=== PATIENT | male | born 1940 | race Two or more races ===

== ENCOUNTER 2023-11-19 17:57 | Emergency (ER) | payer OTHER ==
[~2023-11-19] VITALS: Ht 165.1 cm; Wt 70.3 kg
[2023-11-19] MEDS ORDERED: SYNTHROID100 MCG PO (18:26)
[2023-11-19] MEDS ORDERED: SILDENAFIL CIT100 MG PO (18:27)
[2023-11-19] MEDS ORDERED: JARDIANCE10 MG PO (18:27)
[2023-11-19] MEDS ORDERED: CARVEDILOL6.25 M1 PO (18:27)
[2023-11-19] MEDS ORDERED: XANAX0.25 MG PO (18:27)
[2023-11-19] MEDS ORDERED: GABAPENTIN300 M2 PO (18:27)
[2023-11-19 20:07] LABS: HEMATOCRIT 44.3 % (39.0-48.0); HEMOGLOBIN 14.9 g/dL (13-16.00); MEAN CELL VOLUME 95.9 fL (80.0-100.00); MEAN CORPUSCULAR HEMOGLOBIN 32.2 pg (27.00-32.0); MEAN CORPUSCULAR HGB CONC 33.6 g/dl (32.0-36.0); PLATELET COUNT 190 K/uL (150-450); RED BLOOD COUNT 4.62 M/uL (4.00-6.00); RED CELL DISTRIBUTION WIDTH 15.1 % (11.5-14.5)
[2023-11-19 20:33] LABS: ALBUMIN 3.4 gm/dL (3.4-5.0); BILIRUBIN TOTAL 2.95 mg/dL (0.3-1.2); CALCIUM 9.6 mg/dL (8.5-10.1); CREATININE SERUM 1.61 mg/dL (0.70-1.30); GFR 41.39; GLOBULINA 3.8 G/DL (2.4-3.5); POTASSIUM 4.43 mEq/L (3.5-5.1); TOTAL PROTEIN 7.2 gm/dL (6.4-8.2)
[2023-11-19 21:01] LABS: PH,URINE 5.5 (5.0-8.0); URINE APPEARANCE Clear; URINE BILIRRUBIN Moderate (NEGATIVE); URINE BLOOD Negative; URINE COLOR Dark Yellow; URINE LEUKOCYTE Trace; URINE NITRATE Positive; URINE PROTEIN 30 (NEGATIVE)
[2023-11-19 21:05] LABS: URINE BACTERIA 23.9 uL (0.0-1933); URINE EPITHELIAL CELLS 32.1 uL (0.0-38.8); URINE RBC 4.2 uL (0.0-20.8); URINE WBC 13.7 uL (0.0-23.2)
[2023-11-19 21:12] LABS: URINE GLUCOSE >=1000 MG/DL (NEGATIVE)
== END 2023-11-20 00:01 | disposition home or self-care (01) ==
LOC: ER 17:58
PROVIDERS: General Practice
DX: N39.0 Urinary tract infection, site not specified (principal); R10.2 Pelvic and perineal pain; K80.20 Calculus of gallbladder without cholecystitis without obstruction; N20.0 Calculus of kidney; K43.9 Ventral hernia without obstruction or gangrene; I10 Essential (primary) hypertension; Z20.822 Contact with and (suspected) exposure to COVID-19

== ENCOUNTER → 2024-05-24 09:56 | Outpatient (CLI) | payer OTHER ==
[~2024-05-24 09:56] MED LIST: CARVEDILOL6.25 M1 PO; GABAPENTIN300 M2 PO; JARDIANCE10 MG PO; SILDENAFIL CIT100 MG PO; SYNTHROID100 MCG PO; XANAX0.25 MG PO
== END | disposition home or self-care (01) ==
LOC: NUCLEAR 09:56
PROVIDERS: ATTEND Internal Medicine Cardiovascular Disease
DX: I42.0 Dilated cardiomyopathy (principal)

== ENCOUNTER 2024-11-04 13:50 | Inpatient (IN) | payer OTHER ==
[~2024-11-04] VITALS: Ht 165.1 cm; Wt 70.3 kg
[2024-11-04] MEDS ORDERED: LEVOTHYROXINE25 MCG PO (16:51)
--- NOTE | 2024-11-04 16:53 | NUR ---
SE RECIBE PACIENTE ALERTA Y CONCIENTE X 3. EL MISMO REFIERE VENIR PORQUE CARLSON DOCTOR CRYSTAL RAYMOND DESEA COMPROBAR CON UN NEUMOLOGO YANNICK PLACA DE PECHO REALIZADA. SE PROCEDE A JUDY S/V AL PACIENTE Y EL MISMO INDICA NON TENER NINGUN DOLOR Y SENTIRSE LAXMI. SE UBICA PACIENTE.
[2024-11-04 18:21] LABS: BASO % 0.6 % (0.1-1.2); EOS # 0.31 (0.04-0.54); EOS % 2.5 % (0.7-7.0); LYMPH # 1.26 (1.18-3.74); LYMPH % 10.1 % (19.3-53.1); MEAN PLATELET VOLUME 8.80 fl (9.4-12.4); MONO # 0.68 (0.24-0.82); MONO % 5.4 % (4.7-12.5); NEUT # 10.09 (1.56-6.13); NEUT % 80.8 % (34.0-71.1); RED CELL DISTRIBUTION WIDTH 13.2 % (11.6-14.4)
[2024-11-04 18:42] LABS: INR 1.05
[2024-11-04 18:51] LABS: ALT/SGPT 21.0 U/L (12-78); AST/SGOT 13.0 U/L (15-37); BILIRUBIN TOTAL 0.39 mg/dL (0.3-1.2); BUN CREA RATIO 16.0 (7.0-25.0); CREATININE SERUM 1.54 mg/dL (0.70-1.30); GFR 43.46; GLOBULINA 5.1 G/DL (2.4-3.5); GLUCOSE FASTING 98.0 mg/dL (65-100); OSMOLALITY SERUM 289.0 MOSM/KG (275-295)
[2024-11-04 18:58] LABS: COVID-19 AG NEGATIVE (NEGATIVE)
[2024-11-04] MEDS ORDERED: levoFLOXacin IN DEXTROSE 5 % 500MG/100ML PIGGYBAG IV ONE (21:15)
[2024-11-04] MEDS ORDERED: FAMOtidine 10 MG/ML (4ML VIAL) IV ONE (21:15)
[2024-11-04] MEDS ORDERED: GUAIFEN/DEXTROMETHORPHAN/PE 10 ML BLIST.PACK PO SCH (22:51)
[2024-11-04] MEDS ORDERED: 0.9 % SODIUM CHLORIDE 1,000 ML IV SCH (23:00)
[2024-11-04] MEDS ORDERED: INSULIN LISPRO 1,000 UNIT/10 ML UNITS SUBCUTANEO PRN (23:00)
[2024-11-04] MEDS ORDERED: SODIUM POLYSTYRENE SULFONATE 30G/8 TSP PO ONE (23:00)
[2024-11-04] MEDS ORDERED: ACETAMINOPHEN 500 MG GEL..CAP PO PRN (23:00)
[2024-11-04] MEDS ORDERED: DEXTROSE 50 % IN WATER 0.5 G/ML DISP.SYRIN IV PRN (23:00)
[2024-11-04] MEDS ORDERED: TEMAZEPAM 15 MG CAPSULE PO ONE (23:30)
[2024-11-05 00:31] LABS: ABG PH 7.391 (7.35-7.45); ABG PO2 69.0 mmHg (80-100); BICARBONATE 21.0 mmol/l (23-25)
[2024-11-05 00:32] LABS: o2 21 %
[2024-11-05] MEDS ORDERED: IPRATROPIUM BROMIDE 0.5 MG/2.5 ML AMPUL.NEB IH SCH (01:00)
[2024-11-05 03:21] VITALS: BP 130/85
[2024-11-05 04:54] LABS: BUN CREA RATIO 17.0 (7.0-25.0); CREATININE SERUM 1.44 mg/dL (0.70-1.30); GFR 46.97; GLUCOSE FASTING 94.0 mg/dL (65-100); OSMOLALITY SERUM 287.0 MOSM/KG (275-295)
[2024-11-05] MEDS ORDERED: LEVOTHYROXINE SODIUM 25 MCG TABLET PO SCH (06:00)
[2024-11-05 08:16] VITALS: BP 141/78; O2SAT 95
[2024-11-05] MEDS ORDERED: ENOXAPARIN SODIUM 40 MG/0.4 ML SYRINGE SUBCUTANEO SCH (09:00)
[2024-11-05] MEDS ORDERED: FAMOTIDINE/PF 20 MG in 0.9 % SODIUM CHLORIDE 8 ML IV PUSH SCH (09:00)
[2024-11-05] MEDS ORDERED: DEXTROSE 50 % IN WATER 0.5 G/ML VIAL IV PRN (14:15)
[2024-11-05] MEDS ORDERED: RINGERS SOLUTION,LACTATED 1,000 ML IV SCH (17:00)
[2024-11-05 17:59] VITALS: BP 148/72; O2SAT 100
[2024-11-05] MEDS ORDERED: QUETIAPINE FUMARATE 100 MG TABLET PO SCH (21:00)
[2024-11-06 00:45] VITALS: BP 135/64; O2SAT 93
[2024-11-06 06:15] LABS: BASO % 0.6 % (0.1-1.2); EOS # 0.35 (0.04-0.54); EOS % 3.0 % (0.7-7.0); LYMPH # 1.43 (1.18-3.74); LYMPH % 12.4 % (19.3-53.1); MEAN PLATELET VOLUME 8.60 fl (9.4-12.4); MONO # 0.71 (0.24-0.82); MONO % 6.1 % (4.7-12.5); NEUT # 8.94 (1.56-6.13); NEUT % 77.3 % (34.0-71.1); RED CELL DISTRIBUTION WIDTH 13.2 % (11.6-14.4)
[2024-11-06 06:39] LABS: ALT/SGPT 15.0 U/L (12-78); AST/SGOT 12.0 U/L (15-37); BILIRUBIN TOTAL 0.33 mg/dL (0.3-1.2); BUN CREA RATIO 14.0 (7.0-25.0); CREATININE SERUM 1.45 mg/dL (0.70-1.30); GFR 46.59; GLOBULINA 4.1 G/DL (2.4-3.5); GLUCOSE FASTING 88.0 mg/dL (65-100); OSMOLALITY SERUM 286.0 MOSM/KG (275-295)
[2024-11-06 10:16] VITALS: BP 145/63; O2SAT 94
[2024-11-06] MEDS ORDERED: AMINO ACIDS/PROTEIN HYDROLYS 30 ML BLIST.PACK PO SCH ×2 (11:00→13:00)
[2024-11-06 18:37] VITALS: BP 137/74; O2SAT 97
[2024-11-07 01:00] VITALS: BP 90/50
[2024-11-07 06:24] LABS: BASO % 0.5 % (0.1-1.2); EOS # 0.28 (0.04-0.54); EOS % 2.9 % (0.7-7.0); LYMPH # 0.96 (1.18-3.74); LYMPH % 10.0 % (19.3-53.1); MEAN PLATELET VOLUME 8.70 fl (9.4-12.4); MONO # 0.66 (0.24-0.82); MONO % 6.9 % (4.7-12.5); NEUT # 7.55 (1.56-6.13); NEUT % 79.1 % (34.0-71.1); RED CELL DISTRIBUTION WIDTH 13.3 % (11.6-14.4)
[2024-11-07 06:57] LABS: ALT/SGPT 12.0 U/L (12-78); AST/SGOT 12.0 U/L (15-37); BILIRUBIN TOTAL 0.34 mg/dL (0.3-1.2); BUN CREA RATIO 18.0 (7.0-25.0); CREATININE SERUM 1.27 mg/dL (0.70-1.30); GFR 54.29; GLOBULINA 3.5 G/DL (2.4-3.5); GLUCOSE FASTING 98.0 mg/dL (65-100); OSMOLALITY SERUM 287.0 MOSM/KG (275-295)
[2024-11-07] MEDS ORDERED: levoFLOXacin IN DEXTROSE 5 % 150 ML IV SCH (09:00)
[2024-11-07] MEDS ORDERED: LEVALBUTEROL HCL 1.25 MG/3 ML SOLUTION IH SCH (09:00)
[2024-11-07] MEDS ORDERED: SODIUM CHLORIDE FOR INHALATION 1 VIAL.NEB IH SCH (09:00)
[2024-11-07 09:17] VITALS: BP 132/53; O2SAT 94
[2024-11-07 18:08] VITALS: BP 143/80; O2SAT 96
[2024-11-07 18:10] VITALS: BP 143/80; O2SAT 96
[2024-11-08 01:28] VITALS: BP 125/68
[2024-11-08 08:00] VITALS: BP 155/68; O2SAT 95
[2024-11-08] MEDS ORDERED: LEVOFLOXACIN750 MG PO (14:27)
[2024-11-08] MEDS ORDERED: SYMBICORT 80/10.2 GM IH (14:28)
== END 2024-11-08 14:49 | disposition home or self-care (01) | DRG 194 ==
LOC: ER 13:50 → SEC-K 22:53 → MEDJ 22:53
PROVIDERS: General Practice; Preventive Medicine Public Health & General Preventive Medicine; ADMIT Internal Medicine; ATTEND Internal Medicine
PROC: BB24ZZZ Computerized Tomography (CT Scan) of Bilateral Lungs (ICD-10-PCS; principal; 2024-11-04)
PROC: 3E0F7GC Introduction of Other Therapeutic Substance into Respiratory Tract, Via Natural or Artificial Opening (ICD-10-PCS; 2024-11-05)
DX: J18.9 Pneumonia, unspecified organism (principal); N17.8 Other acute kidney failure; E87.5 Hyperkalemia; E11.9 Type 2 diabetes mellitus without complications; Z79.4 Long term (current) use of insulin; I10 Essential (primary) hypertension

== ENCOUNTER 2025-03-23 10:54 | Inpatient (IN) | payer OTHER ==
[~2025-03-23] VITALS: Ht 172.7 cm; Wt 61.2 kg
[~2025-03-23 10:54] MED LIST changes: +LEVOFLOXACIN750 MG PO; +LEVOTHYROXINE25 MCG PO; +SYMBICORT 80/10.2 GM IH
[2025-03-23] MEDS ORDERED: NITROGLYCERIN IN 5 % DEXTROSE 250 ML IV SCH (11:17)
[2025-03-23] MEDS ORDERED: 0.9 % SODIUM CHLORIDE 1,000 ML IV STA (11:19)
[2025-03-23] MEDS ORDERED: 0.9 % SODIUM CHLORIDE 1,000 ML IV SCH (11:30)
[2025-03-23] MEDS ORDERED: ASPIRIN 325 MG TABLET.EC PO SCH (11:30)
[2025-03-23] MEDS ORDERED: AMIODARONE HCL 50 MG/ML AMPUL IV ONE ×2 (11:32→12:03)
[2025-03-23 11:35] LABS: BASO % 0.6 % (0.1-1.2); EOS # 0.11 (0.04-0.54); EOS % 0.9 % (0.7-7.0); LYMPH # 1.52 (1.18-3.74); LYMPH % 12.2 % (19.3-53.1); MEAN PLATELET VOLUME 9.40 fl (9.4-12.4); MONO # 0.62 (0.24-0.82); MONO % 5.0 % (4.7-12.5); NEUT # 10.06 (1.56-6.13); NEUT % 81.1 % (34.0-71.1); RED CELL DISTRIBUTION WIDTH 14.1 % (11.6-14.4)
[2025-03-23 11:37] LABS: ERYTHROCYTE SEDIMENTATION RATE 13 mm/hr (0-20)
--- NOTE | 2025-03-23 11:40 | NUR ---
PACIENTE ALERTA Y ORIENTADO X 3, ACOMPANADO DE FAMILIAR. REFIEREN DOLOR DE PECHO DESDE LAS 7AM. SE MIDEN S/V Y SE REALIZA EKG. SE PRESENTA A TIERA BERLINGERY QUIEN ORDENA COLOCAR EN MONITOR CAN SATUROMETRO Y CANULA NASAL.
--- NOTE | 2025-03-23 11:44 | NUR ---
NO ES POSIBLE AL MOMENTO REALIZAR CONCILIACION DE MEDICAMENTOS CON PACIENTE Y FAMILIAR LOS DESCONOCE.
[2025-03-23 11:59] LABS: INR 0.94
[2025-03-23 12:06] LABS: ALT/SGPT 13.0 U/L (12-78); AST/SGOT 10.0 U/L (15-37); BILIRUBIN TOTAL 0.28 mg/dL (0.3-1.2); BUN CREA RATIO 18.0 (7.0-25.0); CHOL HDL RATIO 3.2 (0-5.0); CREATININE SERUM 2.39 mg/dL (0.70-1.30); GFR 26.11; GLOBULINA 3.5 G/DL (2.4-3.5); GLUCOSE FASTING 173.0 mg/dL (65-100); HDL 59.0 mg/dl (40-60); LDH 146.0 U/L (87-241); OSMOLALITY SERUM 300.0 MOSM/KG (275-295); PHOSPHOKINASE CREATININE 71.0 U/L (39-308)
[2025-03-23 12:08] LABS: LDL 79.0 mg/dl (0-130); VLDL 52.0 (0-39)
[2025-03-23] MEDS ORDERED: AMIODARONE IN DEXTROSE,ISO-OSM 360 MG/200 ML IV.SOLN IV SCH (12:15)
--- NOTE | 2025-03-23 12:25 | NUR ---
SE REALIZA LAB Y SE ADMINISTRA TX EMILY ORDEN MEDICA BAJO MEDIDAS ASEPTICAS. SE ORIENTA PTE QUIEN REFIERE ENTENDER Y ACEPTAR. SE REALIZA EKG Y SE PRESENTA EKG A TIERA. SARA QUIEN REFIERE QUE SE UBIQUE PTE EN CRITICO. SE TRANSFIERE A PTE A UNIDAD DE CRITICO. SE UBICA PTE EN CAMA SE COLOCA MONITOR CARDIACO Y OXIMETRIA.
--- NOTE | 2025-03-23 12:30 | NUR ---
SE RECIBE PTE DE SECCK. SE CONECTA A MONITOR CARDIACO Y OXIMETRIA DE PULSO CONTINUA. CANALIZADO X2 EN BRAZO TARSHA RECIBIENDO IV FLUIDS FULL DRIP. PASA DR MCCLELLAND A CLARENCE PTE. ORDENA DRIP DE NEXTERONE. SE COLOCA DRIP DE NEXTERONE 900MG/500ML A 32MLS/HR. PTE REHUSA DE LA CRUZ, REFIERE QUE CUANDO DESEE ORINAR PIDE URINAL.
[2025-03-23] MEDS ORDERED: AMIODARONE HCL 518 ML IV SCH (16:30)
[2025-03-23] MEDS ORDERED: ACETAMINOPHEN 500 MG GEL..CAP PO PRN (16:45)
[2025-03-23 17:05] VITALS: BP 104/55
[2025-03-23] MEDS ORDERED: IPRATROPIUM BROMIDE 0.5 MG/2.5 ML AMPUL.NEB IH SCH (17:34)
[2025-03-23] MEDS ORDERED: INSULIN LISPRO 1,000 UNIT/10 ML UNITS SUBCUTANEO PRN (17:45)
[2025-03-23] MEDS ORDERED: DEXTROSE 50 % IN WATER 0.5 G/ML DISP.SYRIN IV PRN (17:45)
[2025-03-23] MEDS ORDERED: MEROPENEM 500 MG/VIAL VIAL IV SCH (21:00)
[2025-03-23 23:28] VITALS: BP 117/57; O2SAT 95
[2025-03-24] VITALS (20 sets, daily range): BP systolic 84–195; BP diastolic 48–106; O2SAT 89–99
[2025-03-24] MEDS ORDERED: ACETAMINOPHEN 500 MG GEL..CAP PO ONE (03:23)
[2025-03-24 06:46] LABS: BASO % 0.8 % (0.1-1.2); EOS # 0.37 (0.04-0.54); EOS % 3.2 % (0.7-7.0); LYMPH # 2.03 (1.18-3.74); LYMPH % 17.5 % (19.3-53.1); MEAN PLATELET VOLUME 9.10 fl (9.4-12.4); MONO # 0.68 (0.24-0.82); MONO % 5.9 % (4.7-12.5); NEUT # 8.38 (1.56-6.13); NEUT % 72.2 % (34.0-71.1); RED CELL DISTRIBUTION WIDTH 14.3 % (11.6-14.4)
[2025-03-24 06:51] LABS: ERYTHROCYTE SEDIMENTATION RATE 16 mm/hr (0-20)
[2025-03-24 07:22] LABS: URINE APPEARANCE Clear; URINE BILIRRUBIN Negative (NEGATIVE); URINE BLOOD Negative; URINE COLOR Yellow; URINE KETONE Negative (NEGATIVE); URINE LEUKOCYTE Negative; URINE NITRATE Negative; URINE PROTEIN Trace (NEGATIVE); URINE UROBILINOGEN 0.2 E.U./dl
[2025-03-24 07:25] LABS: URINE BACTERIA 99.6 uL (0.0-1933); URINE EPITHELIAL CELLS 5.6 uL (0.0-38.8); URINE RBC 4.5 uL (0.0-20.8); URINE WBC 7.3 uL (0.0-23.2)
[2025-03-24 07:40] LABS: BUN CREA RATIO 21.0 (7.0-25.0); CREATININE SERUM 1.78 mg/dL (0.70-1.30); GFR 36.68; GLUCOSE FASTING 123.0 mg/dL (65-100); OSMOLALITY SERUM 294.0 MOSM/KG (275-295); TSH 3.39 uIU/mL (0.358-3.74)
[2025-03-24 07:42] LABS: URINE CAST 0.58 uL (0.0-1.40); URINE GLUCOSE 500 MG/DL (NEGATIVE)
[2025-03-24] MEDS ORDERED: ENOXAPARIN SODIUM 30 MG/0.3 ML SYRINGE SUBCUTANEO SCH (09:00)
[2025-03-24] MEDS ORDERED: FLUOXETINE HCL 10 MG CAPSULE PO SCH (16:00)
[2025-03-24] MEDS ORDERED: CARVEDILOL 6.25 MG TABLET PO SCH (17:00)
[2025-03-24] MEDS ORDERED: CILOSTAZOL 50 MG TABLET PO SCH (17:00)
[2025-03-24 17:35] LABS: COVID-19 AG NEGATIVE (NEGATIVE)
[2025-03-24] MEDS ORDERED: QUETIAPINE FUMARATE 100 MG TABLET PO SCH (21:00)
[2025-03-24] MEDS ORDERED: BUPROPION HCL 150 MG TABLET.SA PO SCH (21:00)
[2025-03-25] VITALS (12 sets, daily range): BP systolic 95–148; BP diastolic 50–82; O2SAT 93–98
[2025-03-25] MEDS ORDERED: LEVOTHYROXINE SODIUM 100 MCG TABLET PO SCH (06:00)
[2025-03-25] MEDS ORDERED: DOXYCYCLINE HYCLATE 100MG IV SCH (06:47)
[2025-03-25] MEDS ORDERED: IPRATROPIUM BROMIDE 0.5 MG/2.5 ML AMPUL.NEB IH ONE (07:20)
[2025-03-25] MEDS ORDERED: CHLORHEXIDINE GLUCONATE 120 ML BOTTLE TOP ONE (08:33)
[2025-03-25] MEDS ORDERED: PATIENTS OWN MEDICATION (MEDICAMENTO EN PISO) PO SCH ×2 (09:00)
[2025-03-25] MEDS ORDERED: SACUBITRIL/VALSARTAN 1 EACH TABLET PO SCH (09:00)
[2025-03-25] MEDS ORDERED: MEROPENEM 500 MG/VIAL VIAL IV SCH (09:00)
[2025-03-25] MEDS ORDERED: AMIODARONE HCL 200 MG TABLET PO SCH (17:00)
[2025-03-25] MEDS ORDERED: DOXYCYCLINE HYCLATE 100MG IV ONE (20:27)
[2025-03-26] VITALS (9 sets, daily range): BP systolic 100–115; BP diastolic 60–68; O2SAT 90–100
[2025-03-26 07:35] LABS: BASO % 0.8 % (0.1-1.2); EOS # 0.31 (0.04-0.54); EOS % 4.1 % (0.7-7.0); LYMPH # 0.95 (1.18-3.74); LYMPH % 12.7 % (19.3-53.1); MEAN PLATELET VOLUME 9.20 fl (9.4-12.4); MONO # 0.67 (0.24-0.82); MONO % 8.9 % (4.7-12.5); NEUT # 5.50 (1.56-6.13); NEUT % 73.4 % (34.0-71.1); RED CELL DISTRIBUTION WIDTH 13.5 % (11.6-14.4)
[2025-03-26 07:42] LABS: ALT/SGPT 10.0 U/L (12-78); AST/SGOT 14.0 U/L (15-37); BILIRUBIN TOTAL 0.42 mg/dL (0.3-1.2); BUN CREA RATIO 23.0 (7.0-25.0); CREATININE SERUM 1.52 mg/dL (0.70-1.30); GFR 44.02; GLOBULINA 3.0 G/DL (2.4-3.5); GLUCOSE FASTING 131.0 mg/dL (65-100); OSMOLALITY SERUM 293.0 MOSM/KG (275-295)
[2025-03-26] MEDS ORDERED: DOXYCYCLINE HYCLATE 100MG IV ONE ×2 (08:42→16:26)
[2025-03-26] MEDS ORDERED: SODIUM CHLORIDE FOR INHALATION 1 VIAL.NEB IH SCH (09:00)
[2025-03-26] MEDS ORDERED: LEVALBUTEROL HCL 0.63 MG/3 ML SOLUTION IH NR (09:00)
[2025-03-26] MEDS ORDERED: LEVALBUTEROL HCL 0.63 MG/3 ML SOLUTION IH SCH (14:00)
[2025-03-27] VITALS (8 sets, daily range): BP systolic 99–143; BP diastolic 48–71; O2SAT 90–98
[2025-03-27] MEDS ORDERED: CEFTRIAXONE SODIUM 2,000 MG in 0.9 % SODIUM CHLORIDE 100 ML IV SCH (09:00)
[2025-03-27] MEDS ORDERED: DOXYCYCLINE HYCLATE 100MG IV ONE (09:03)
[2025-03-27] MEDS ORDERED: DOXYCYCLINE HYCLATE 100MG EACH PO SCH (17:00)
[2025-03-28 02:21] VITALS: BP 95/57; O2SAT 94
[2025-03-28] MEDS ORDERED: EMPAGLIFLOZIN 10 MG TABLET PO SCH (09:00)
[2025-03-28 09:33] VITALS: BP 147/76; O2SAT 97
[2025-03-28 13:41] VITALS: O2SAT 95
[2025-03-28 13:47] LABS: BASO % 0.3 % (0.1-1.2); EOS # 0.25 (0.04-0.54); EOS % 3.2 % (0.7-7.0); LYMPH # 0.45 (1.18-3.74); LYMPH % 5.8 % (19.3-53.1); MEAN PLATELET VOLUME 9.50 fl (9.4-12.4); MONO # 0.49 (0.24-0.82); MONO % 6.3 % (4.7-12.5); NEUT # 6.50 (1.56-6.13); NEUT % 84.1 % (34.0-71.1); RED CELL DISTRIBUTION WIDTH 13.4 % (11.6-14.4)
[2025-03-28 14:07] LABS: ALT/SGPT 11.0 U/L (12-78); AST/SGOT 15.0 U/L (15-37); BILIRUBIN TOTAL 0.5 mg/dL (0.3-1.2); BUN CREA RATIO 22.0 (7.0-25.0); CREATININE SERUM 1.58 mg/dL (0.70-1.30); GFR 42.09; GLOBULINA 3.7 G/DL (2.4-3.5); GLUCOSE FASTING 122.0 mg/dL (65-100); OSMOLALITY SERUM 291.0 MOSM/KG (275-295)
[2025-03-28 16:17] VITALS: O2SAT 90
[2025-03-28 19:53] VITALS: O2SAT 90
[2025-03-28 19:59] VITALS: BP 90/50; O2SAT 97
[2025-03-28] MEDS ORDERED: CLOTRIMAZOLE 10 MG TROCHE MM SCH (21:00)
[2025-03-29] VITALS (8 sets, daily range): BP systolic 92–120; BP diastolic 50–70; O2SAT 88–98
[2025-03-29] MEDS ORDERED: BENZONATATE 200 MG CAPSULE PO PRN (12:45)
[2025-03-29] MEDS ORDERED: GUAIFEN/DEXTROMETHORPHAN/PE 10 ML BLIST.PACK PO PRN (12:45)
[2025-03-30] VITALS (10 sets, daily range): BP systolic 88–125; BP diastolic 50–52; O2SAT 91–97
[2025-03-31] VITALS (10 sets, daily range): BP systolic 115–129; BP diastolic 54–64; O2SAT 89–96
[2025-03-31] MEDS ORDERED: SPIRONOLACTONE 50 MG TABLET PO NR (18:00)
[2025-04-01] VITALS (8 sets, daily range): BP systolic 130–149; BP diastolic 57–66; O2SAT 85–98
[2025-04-01 07:03] LABS: BASO % 0.2 % (0.1-1.2); EOS # 0.12 (0.04-0.54); EOS % 2.9 % (0.7-7.0); LYMPH # 0.63 (1.18-3.74); LYMPH % 15.2 % (19.3-53.1); MEAN PLATELET VOLUME 9.70 fl (9.4-12.4); MONO # 0.40 (0.24-0.82); MONO % 9.6 % (4.7-12.5); NEUT # 2.97 (1.56-6.13); NEUT % 71.6 % (34.0-71.1); RED CELL DISTRIBUTION WIDTH 13.2 % (11.6-14.4)
[2025-04-01 08:01] LABS: ALT/SGPT 23.0 U/L (12-78); AST/SGOT 37.0 U/L (15-37); BILIRUBIN TOTAL 0.32 mg/dL (0.3-1.2); BUN CREA RATIO 23.0 (7.0-25.0); CREATININE SERUM 1.61 mg/dL (0.70-1.30); GFR 41.19; GLOBULINA 3.2 G/DL (2.4-3.5); GLUCOSE FASTING 79.0 mg/dL (65-100); OSMOLALITY SERUM 285.0 MOSM/KG (275-295)
[2025-04-01] MEDS ORDERED: SPIRONOLACTONE 50 MG TABLET PO SCH (09:00)
[2025-04-01] MEDS ORDERED: TAMSULOSIN HCL 0.4 MG CAP PO STA (13:37)
[2025-04-01] MEDS ORDERED: LEVALBUTER0.63 MG/3 IH (14:20)
[2025-04-01] MEDS ORDERED: ENTRESTO 24 MG1 EACH PO (14:21)
[2025-04-01] MEDS ORDERED: WELLBUTRIN SR150 MG PO (14:21)
[2025-04-01] MEDS ORDERED: ZETIA10 MG PO (14:21)
[2025-04-01] MEDS ORDERED: SPIRONOLACTONE50 MG PO (14:21)
[2025-04-01] MEDS ORDERED: CARVEDILOL6.25 MG PO (14:21)
[2025-04-01] MEDS ORDERED: AMIODARONE HCL200 MG PO (14:21)
[2025-04-01] MEDS ORDERED: ALTIPRES LIQUI473 ML PO (14:22)
[2025-04-01] MEDS ORDERED: BENZONATATE200 M1 PO (14:22)
[2025-04-01] MEDS ORDERED: PROZAC10 MG PO (14:22)
[2025-04-01] MEDS ORDERED: FUROSEMIDE20 MG PO (14:22)
[2025-04-01] MEDS ORDERED: JARDIANCE10 MG PO (14:23)
[2025-04-01] MEDS ORDERED: SYNTHROID100 MCG PO (14:23)
[2025-04-02 02:01] VITALS: O2SAT 93
[2025-04-02 03:27] VITALS: BP 117/50; O2SAT 94
[2025-04-02 05:31] VITALS: O2SAT 94
[2025-04-02 08:54] VITALS: BP 111/61; O2SAT 93
== END 2025-04-02 12:36 | disposition home or self-care (01) | DRG 308 ==
LOC: ER 10:54 → ICU-2 16:19 → MEDJ 03-25 13:27
PROVIDERS: General Practice; Physician Assistant Medical; ADMIT Internal Medicine; ATTEND Internal Medicine
PROC: BB24ZZZ Computerized Tomography (CT Scan) of Bilateral Lungs (ICD-10-PCS; principal; 2025-03-23)
PROC: B246ZZZ Ultrasonography of Right and Left Heart (ICD-10-PCS; 2025-03-23)
PROC: 3E0F7GC Introduction of Other Therapeutic Substance into Respiratory Tract, Via Natural or Artificial Opening (ICD-10-PCS; 2025-03-24)
PROC: 4A12X4Z Monitoring of Cardiac Electrical Activity, External Approach (ICD-10-PCS; 2025-03-25)
DX: I47.29 Other ventricular tachycardia (principal); J18.9 Pneumonia, unspecified organism; N17.8 Other acute kidney failure; I13.0 Hypertensive heart and chronic kidney disease with heart failure and stage 1 through stage 4 chronic kidney disease, or unspecified chronic kidney disease; N18.9 Chronic kidney disease, unspecified; E87.5 Hyperkalemia; I25.10 Atherosclerotic heart disease of native coronary artery without angina pectoris; I73.9 Peripheral vascular disease, unspecified; R09.02 Hypoxemia

== ENCOUNTER → 2025-04-11 | Emergency (ER) | payer OTHER ==
[~2025-04-11] MED LIST changes: +ALTIPRES LIQUI473 ML PO; +AMIODARONE HCL200 MG PO; +BENZONATATE200 M1 PO; +CARVEDILOL6.25 MG PO; +ENTRESTO 24 MG1 EACH PO; +FUROSEMIDE20 MG PO; +LEVALBUTER0.63 MG/3 IH; +PROZAC10 MG PO; +SPIRONOLACTONE50 MG PO; +WELLBUTRIN SR150 MG PO; +ZETIA10 MG PO
== END | disposition left against medical advice (07) ==
LOC: ER 12:25
DX: Z53.21 Procedure and treatment not carried out due to patient leaving prior to being seen by health care provider (principal)